=== PATIENT | female | born 1965 | race Caucasian/White ===

== ENCOUNTER 2018-07-29 06:02 | Day surgery (SDC) | payer OTHER ==
[~2018-07-29 06:02] MED LIST: COLACE100 MG PO; IBUPROFEN800 MG PO; MIRALAX12 EA PO; ORPH100T PO
== END 2018-07-29 12:10 | disposition home or self-care (01) ==
LOC: AMB-ENDOS 06:02
DX: K57.30 Diverticulosis of large intestine without perforation or abscess without bleeding (principal); Z12.11 Encounter for screening for malignant neoplasm of colon